=== PATIENT | male | born 1960 | race Caucasian/White ===

== ENCOUNTER → 2020-07-14 02:11 | Outpatient (CLI) | payer BC, SELFPAY ==
[2020-07-14 19:56] LABS: SARS-CoV-2 RNA PCR Negative
== END ==
PROVIDERS: PCP Family Medicine; Visit Provider Internal Medicine Gastroenterology
DX: Z01.812 Encounter for preprocedural laboratory examination (principal); Z20.822 Contact with and (suspected) exposure to COVID-19
CPT/HCPCS: C9803; U0003; U0005

== ENCOUNTER 2020-07-18 02:08 | Day surgery (SDC) | payer BC, SELFPAY ==
[2020-07-10 14:46] VITALS: BMI 21.5
[2020-07-18 08:51] VITALS: BP 126/74; PULSE 77; RESP 16; TEMP 36.4; O2SAT 98; BMI 19.4
[2020-07-18] MEDS: LACTATED RINGERS 1,000 ML 150 ML IV CONT (09:12)
--- NOTE | 2020-07-18 09:17 | WPDANESEPPF ---
Anes - Initial Pre Proc Eval Procedure: Operation Date: 07/18/20 09:30 Proposed Procedures p Esophagogastroduodenoscopy - Jenaro No MD Date/Time: 07/18/20 09:17 Surgeon: Jenaro No MD Pre Op Diagnosis: epigastric pain Patient Data Age: 59 Gender: M Height: 5 ft 11 in Weight: 63.2 kg Last Vital Signs Temp 97.6 F 07/18/20 08:51 Pulse 77 07/18/20 08:51 Resp 16 07/18/20 08:51 BP 126/74 07/18/20 08:51 Pulse Ox 98 07/18/20 08:51 Allergies Allergy/AdvReac Type Severity Reaction Status Date / Time No Known Allergies Allergy Verified 07/18/20 08:49 Home Medications Medication Instructions Recorded Confirmed Type baclofen 20 mg tablet 20 mg PO Q6H tablet 01/06/19 07/18/20 History oxybutynin chloride 10 mg 10 mg PO DAILY 01/06/19 07/18/20 History tablet,extended release 24 hr tramadol 50 mg tablet 50 mg PO Q6H PRN #28 tablet 02/03/19 07/18/20 Rx hydrocodone 5 mg-acetaminophen 325 1 tablet PO DAILY PRN #30 tablet 05/20/19 07/18/20 Rx mg tablet omeprazole 20 mg tablet,delayed 20 mg PO DAILY #30 tablet 06/18/20 07/18/20 Rx release diclofenac sodium 2 g TOPICAL QID PRN 07/10/20 07/18/20 History ibuprofen 400 mg PO Q6H PRN 07/18/20 07/18/20 History Patient hx anesthesia problems: none Family hx anesthesia problems: none [facility] Past Medical History Medical History (Updated 07/18/20 @ 09:13 by Velasquez Sanders MD) Quadriplegia, C5-C7 incomplete Family History Family History Father Family history of premature coronary heart disease, Onset Age: 70 Hypertension Family history of elevated blood lipids Patient's father is Family history of heart disease in male family member before age 55 Sibling Patient's sister is Other Family history of cardiovascular disease Social History Social History Smoking status: Never smoker Alcohol intake: never Substance use: never Substance use type: does not use Living arrangements: with family Spiritual care concerns: No Anes - Eval Final PreProcedure Day of Procedure 07/18/20 09:17 Patient weight: normal Heart: regular rate and rhythm Lungs: clear to auscultation Airway: Mallampati scale class II Neurological: alert and oriented Last oral intake: >/= 8 hours ASA classification: III Emergent: no Anesthetic plan: proceed Anesthesia type and monitoring: general GIVS and standard monitoring Informed Consent: The patient's anesthetic plan and its attendant risks and benefits were discussed with the patient/family/POA. Questions were solicited and answers provided to the satisfaction of the patient/family/POA.
--- NOTE | 2020-07-18 09:22 | WPDGICN ---
Assessment and Plan Assessment and plan (1) Epigastric abdominal pain: Code(s): R10.13 - Epigastric pain Status: Acute Assessment and Plan: Patient has ongoing epigastric pain. History of gastric ulcer 5 years ago. Plan is for EGD to assess more thoroughly. Patient does take a large amount of ibuprofen and this should be discontinued. Starr diet is encouraged dose of Prilosec will continue but amount will be reconsidered after endoscopy. (2) Quadriplegia, C5-C7 incomplete: Code(s): G82.54 - Quadriplegia, C5-C7 incomplete Status: Acute GI Consult Note Consult date/time: 07/18/20 09:22 HPI: Dustin Ramos is a 59 year old male Presents for EGD. Patient has distant history of gastric ulcer 2014. Has a history of spinal cord injury in 1996. He recently has required larger doses of ibuprofen. Because of epigastric pain he recently was started on Prilosec 20 mg p.o. daily. He states previously was on 40 mg p.o. daily with a better results. Because of ongoing epigastric pain an EGD is planned to assess for recurrent ulcer other causes of etiology possible biopsy. Review of Systems Review of Systems: All systems reviewed & are unremarkable except as noted in HPI and below PMFSH Past Medical History Medical History (Updated 07/18/20 @ 09:24 by Jenaro No MD) Quadriplegia, C5-C7 incomplete Family History Family History Father Family history of premature coronary heart disease, Onset Age: 70 Hypertension Family history of elevated blood lipids Patient's father is Family history of heart disease in male family member before age 55 Sibling Patient's sister is Other Family history of cardiovascular disease Social History Social History Smoking status: Never smoker Alcohol intake: never Substance use: never Substance use type: does not use Living arrangements: with family Spiritual care concerns: No Meds Home Medications and Allergies Home Medications Medication Instructions Recorded Confirmed Type baclofen 20 mg tablet 20 mg PO Q6H tablet 01/06/19 07/18/20 History oxybutynin chloride 10 mg 10 mg PO DAILY 01/06/19 07/18/20 History tablet,extended release 24 hr tramadol 50 mg tablet 50 mg PO Q6H PRN #28 tablet 02/03/19 07/18/20 Rx hydrocodone 5 mg-acetaminophen 325 1 tablet PO DAILY PRN #30 tablet 05/20/19 07/18/20 Rx mg tablet omeprazole 20 mg tablet,delayed 20 mg PO DAILY #30 tablet 06/18/20 07/18/20 Rx release diclofenac sodium 2 g TOPICAL QID PRN 07/10/20 07/18/20 History ibuprofen 400 mg PO Q6H PRN 07/18/20 07/18/20 History Allergies Allergy/AdvReac Type Severity Reaction Status Date / Time No Known Allergies Allergy Verified 07/18/20 08:49 Vital Signs Vital Signs - 24 hr 07/18/20 08:51 Temperature 97.6 F Pulse Rate 77 Respiratory Rate 16 Blood Pressure 126/74 Pulse Oximetry 98 Exam Narrative: Exam Narrative: Physical exam reveals patient be alert. Comfortable at rest. HEENT exam reveals him to be anicteric. He has significant weakness diffusely because of a cervical spine injury. Lungs are clear. Heart without murmur. Abdomen bowel sounds are present soft with mild epigastric discomfort tenderness. No organomegaly evident digital rectal exam deferred at this time.
[2020-07-18] MEDS: BENZOCAINE (*SP) 60 ML SPRAY CAN (HURRICAINE) 1 SPRAY MUCOUS MEM (09:40)
[2020-07-18 09:50] VITALS: BP 83/64; PULSE 69; RESP 29; O2SAT 98
[2020-07-18 10:00] VITALS: BP 97/70; PULSE 62; RESP 21; O2SAT 100
[2020-07-18 10:10] VITALS: BP 120/77; PULSE 62; RESP 20; O2SAT 100
== END 2020-07-18 10:30 | disposition home or self-care (01) ==
PROVIDERS: PCP Family Medicine; Visit Provider Internal Medicine Gastroenterology
PROC: 0DJ08ZZ Inspection of Upper Intestinal Tract, Via Natural or Artificial Opening Endoscopic (ICD-10-PCS; CPT 43235; principal; 2020-07-18 09:30)
DX: K25.3 Acute gastric ulcer without hemorrhage or perforation (principal); G82.54 Quadriplegia, C5-C7 incomplete; Z87.11 Personal history of peptic ulcer disease
CPT/HCPCS: 43239; 88305; 88342; J2704; J7120

== ENCOUNTER 2020-10-31 00:06 | Day surgery (SDC) | payer BC, SELFPAY ==
[2020-10-25 08:26] VITALS: BMI 19.3
--- NOTE | 2020-10-31 08:50 | WPDANESEPPF ---
Anes - Initial Pre Proc Eval Procedure: Operation Date: 10/31/20 09:00 Proposed Procedures p Esophagogastroduodenoscopy - Jenaro No MD Date/Time: 10/31/20 08:50 Surgeon: Jenaro No MD Pre Op Diagnosis: gastric ulcer Patient Data Age: 60 Gender: M Height: 1.8 m Weight: 63.1 kg Allergies Allergy/AdvReac Type Severity Reaction Status Date / Time No Known Allergies Allergy Verified 10/25/20 08:24 Home Medications Medication Instructions Recorded Confirmed Type tramadol 50 mg tablet 50 mg PO Q6H PRN #28 tablet 02/03/19 10/25/20 Rx hydrocodone 5 mg-acetaminophen 325 1 tablet PO DAILY PRN #30 tablet 05/20/19 10/25/20 Rx mg tablet diclofenac sodium 2 g TOPICAL QID PRN 07/10/20 09/03/20 History diclofenac sodium 1 % topical gel 2 g TOPICAL QID #300 g 08/24/20 10/25/20 Rx omeprazole 20 mg tablet,delayed 20 mg PO BID #180 tablet 08/24/20 10/25/20 Rx release oxybutynin chloride 10 mg 10 mg PO DAILY #90 tablet 08/24/20 10/25/20 Rx tablet,extended release 24 hr codeine 10 mg-guaifenesin 100 mg/5 10 ml PO Q6H PRN #180 ml 10/01/20 Rx mL oral liquid azithromycin 250 mg tablet See Rx Instructions PO .COMPLEX #6 10/02/20 Rx tablet valacyclovir 1 gram tablet 1,000 mg PO Q8H #30 tablet 10/02/20 Rx dexamethasone 6 mg tablet See Rx Instructions PO .COMPLEX 10/04/20 Rx #35 tablet albuterol sulfate 90 mcg/actuation 1 inh INHALATION Q4H PRN #6.7 g 10/22/20 Rx aerosol inhaler baclofen 20 mg PO QID 10/25/20 10/25/20 History Patient hx anesthesia problems: none Family hx anesthesia problems: none PMFSH Past Medical History Medical History Gastric ulcer OAB (overactive bladder) Paralytic gait Quadriplegia, C5-C7 incomplete Spastic neurogenic bladder Spondylosis, lumbar, with myelopathy Vitamin D deficiency, unspecified Surgical History Surgical History History of lumbar fusion History of lumbar laminectomy Family History Family History Father Family history of premature coronary heart disease, Onset Age: 70 Hypertension Family history of elevated blood lipids Patient's father is Family history of heart disease in male family member before age 55 Sibling Patient's sister is Other Family history of cardiovascular disease Social History Social History Social History: Smoking status: Never smoker Second hand tobacco smoke exposure: No Alcohol intake: never Substance use: never Substance use type: does not use Gender identity (if verbalized by the patient): Male Sexual Orientation (if Verbalized by the Patient): Straight or Heterosexual Spiritual care concerns: No Anes - Eval Final PreProcedure Day of Procedure 10/31/20 08:50 Patient weight: normal Heart: regular rate and rhythm Lungs: clear to auscultation Airway: Mallampati scale class II Neurological: alert and oriented Last oral intake: >/= 8 hours ASA classification: III Emergent: no Anesthetic plan: proceed Anesthesia type and monitoring: general GIVS and standard monitoring Informed Consent: The patient's anesthetic plan and its attendant risks and benefits were discussed with the patient/family/POA. Questions were solicited and answers provided to the satisfaction of the patient/family/POA.
[2020-10-31 08:55] VITALS: BP 120/74; PULSE 58; RESP 18; TEMP 36.6; O2SAT 98; BMI 19.0
[2020-10-31] MEDS: LACTATED RINGERS 1,000 ML 150 ML IV CONT (08:57)
--- NOTE | 2020-10-31 08:58 | WPDGICN ---
Assessment and Plan Assessment and plan (1) Gastric ulcer: Code(s): K25.9 - Gastric ulcer, unspecified as acute or chronic, without hemorrhage or perforation Status: Acute Assessment and Plan: Patient presents for follow-up of gastric ulcer. Identified to have a penetrating gastric ulcer 3 months ago. He has been maintained on PPI therapy. He is avoiding nonsteroidal anti-inflammatory agents. Further recommendations will be given after endoscopy. (2) Quadriplegia, C5-C7 incomplete: Code(s): G82.54 - Quadriplegia, C5-C7 incomplete Status: Acute GI Consult Note Consult date/time: 10/31/20 08:58 HPI: Dustin Ramos is a 60 year old male with incomplete quadriplegia presents for follow-up EGD. Patient has a history of a penetrating gastric ulcer identified in June of 2020. Patient states he continues to have mild epigastric pain. This is present continuously somewhat improved with eating. Is much less than previous. He currently is avoiding nonsteroidal anti-inflammatory agents. He has maintained a bland diet. He presents today for follow-up examination. He has been maintained on omeprazole 20mg p.o. b.i.d.. Family history noncontributory. Review of Systems Review of Systems: All systems reviewed & are unremarkable except as noted in HPI and below PMFSH Past Medical History Medical History Gastric ulcer OAB (overactive bladder) Paralytic gait Quadriplegia, C5-C7 incomplete Spastic neurogenic bladder Spondylosis, lumbar, with myelopathy Vitamin D deficiency, unspecified Surgical History Surgical History History of lumbar fusion History of lumbar laminectomy Family History Family History Father Family history of premature coronary heart disease, Onset Age: 70 Hypertension Family history of elevated blood lipids Patient's father is Family history of heart disease in male family member before age 55 Sibling Patient's sister is Other Family history of cardiovascular disease Social History Social History Social History: Smoking status: Never smoker Second hand tobacco smoke exposure: No Alcohol intake: never Substance use: never Substance use type: does not use Gender identity (if verbalized by the patient): Male Sexual Orientation (if Verbalized by the Patient): Straight or Heterosexual Spiritual care concerns: No Meds Home Medications and Allergies Home Medications Medication Instructions Recorded Confirmed Type tramadol 50 mg tablet 50 mg PO Q6H PRN #28 tablet 02/03/19 10/25/20 Rx hydrocodone 5 mg-acetaminophen 325 1 tablet PO DAILY PRN #30 tablet 05/20/19 10/25/20 Rx mg tablet diclofenac sodium 2 g TOPICAL QID PRN 07/10/20 09/03/20 History diclofenac sodium 1 % topical gel 2 g TOPICAL QID #300 g 08/24/20 10/25/20 Rx omeprazole 20 mg tablet,delayed 20 mg PO BID #180 tablet 08/24/20 10/25/20 Rx release oxybutynin chloride 10 mg 10 mg PO DAILY #90 tablet 08/24/20 10/25/20 Rx tablet,extended release 24 hr codeine 10 mg-guaifenesin 100 mg/5 10 ml PO Q6H PRN #180 ml 10/01/20 Rx mL oral liquid azithromycin 250 mg tablet See Rx Instructions PO .COMPLEX #6 10/02/20 Rx tablet valacyclovir 1 gram tablet 1,000 mg PO Q8H #30 tablet 10/02/20 Rx dexamethasone 6 mg tablet See Rx Instructions PO .COMPLEX 10/04/20 Rx #35 tablet albuterol sulfate 90 mcg/actuation 1 inh INHALATION Q4H PRN #6.7 g 10/22/20 10/31/20 Rx aerosol inhaler baclofen 20 mg PO QID 10/25/20 10/25/20 History Allergies Allergy/AdvReac Type Severity Reaction Status Date / Time No Known Allergies Allergy Verified 10/31/20 08:54 Vital Signs Vital Signs - 24 hr 10/31/20 08:55 Temperature 97.8 F
[2020-10-31 09:06] VITALS: BP 119/73; PULSE 64; RESP 18; O2SAT 99
[2020-10-31 09:46] VITALS: BP 92/58; PULSE 58; RESP 16; O2SAT 98
[2020-10-31 09:56] VITALS: BP 88/56; PULSE 58; RESP 18; O2SAT 98
== END 2020-10-31 10:33 | disposition home or self-care (01) ==
PROVIDERS: PCP Family Medicine; Visit Provider Internal Medicine Gastroenterology
PROC: 0DJ08ZZ Inspection of Upper Intestinal Tract, Via Natural or Artificial Opening Endoscopic (ICD-10-PCS; CPT 43235; principal; 2020-10-31 09:00)
DX: Z09 Encounter for follow-up examination after completed treatment for conditions other than malignant neoplasm (principal); R10.13 Epigastric pain; Z87.11 Personal history of peptic ulcer disease; G82.54 Quadriplegia, C5-C7 incomplete; N31.9 Neuromuscular dysfunction of bladder, unspecified; E55.9 Vitamin D deficiency, unspecified; M47.16 Other spondylosis with myelopathy, lumbar region; Z95.1 Presence of aortocoronary bypass graft; Z79.891 Long term (current) use of opiate analgesic; Z79.51 Long term (current) use of inhaled steroids
CPT/HCPCS: 43239; 87081; J2704; J7120

== ENCOUNTER 2021-07-19 15:17 | Outpatient (CLI) | payer BC, SELFPAY ==
[2021-07-19 16:48] LABS: Basophils Percent Auto 0.5 % (0.2-1.2); Eosinophils Absolute Auto 0.1 K/mm3 (0-0.3); Eosinophils Percent Auto 1.4 % (0-4.4); Hematocrit 44.1 % (42.0-52.0); Hemoglobin 14.3 g/dL (14.0-18.0); Immature Granulocyte Absolute 0.01 K/mm3 (0.00-0.031); Immature Granulocyte Percent A 0.2 % (0-0.5); Lymphocytes Absolute Auto 1.08 K/mm3 (0.9-3.2); Mean Corpuscular HGB Conc 32.4 g/dl (32-36); Mean Corpuscular Hemoglobin 29.1 pg (26-34); Mean Corpuscular Volume 89.8 fl (80-100); Mean Platelet Volume 11.3 fl (7.4-10.4); Monocytes Absolute Auto 0.4 K/mm3 (0.1-0.6); Monocytes Percent Auto 7.7 % (2.6-8.5); Neutrophils Absolute Auto 4.1 K/mm3 (1.3-6.7); Neutrophils Percent Auto 71.2 % (45.5-73.1); Platelet Count Result 247 k/mm3 (150-375); Red Blood Count 4.91 M/mm3 (4.6-6.20); White Blood Count 5.7 K/mm3 (4.5-10.0)
[2021-07-19 17:17] LABS: Erythrocyte Sedimentation Rate 1 mm/hr (0-20)
[2021-07-19 17:29] LABS: Alanine Aminotransferase 17 U/L (6-50); Albumin Level 4.8 g/dL (3.5-5.1); Alkaline Phosphatase 65 U/L (38-126); Anion Gap 7 mmol/L (8-16); Aspartate Amino Transferase 27 U/L (17-59); Bilirubin,Total 0.7 mg/dL (0.2-1.3); Blood Urea Nitrogen 12 mg/dL (9-20); Calcium 9.3 mg/dL (8.4-10.2); Carbon Dioxide 27 mmol/L (22-30); Chloride 101 mmol/L (98-107); Cholesterol 254 mg/dL (0-200); Estimated Glomerular Filt Rate > 60; Glucose 88 mg/dL (65-110); HDL Direct 73 mg/dL; Potassium 4.5 mmol/L (3.4-5.0); Sodium 135 mmol/L (137-145); Triglycerides 79 mg/dL (<150)
[2021-07-19 17:40] LABS: LDL Cholesterol Direct 130 mg/dL
[2021-07-19 18:38] LABS: Folic Acid 17.3 ng/mL (2.76->20); Vitamin B12 > 1000.0 pg/mL (239-931)
[2021-07-22 17:24] LABS: PSA, Free 0.59 ng/mL; PSA, Total 1.8 ng/mL (<=4.0)
[2021-07-23 14:34] LABS: Vitamin D 1,25 (OH)2 Total 45 pg/mL (18-72); Vitamin D2 1,25 (OH)2 <8 pg/mL; Vitamin D3 1,25 (OH)2 45 pg/mL
== END 2021-07-19 15:18 | disposition home or self-care (01) ==
LOC: ANHLAB 15:19
PROVIDERS: PCP Family Medicine; Visit Provider Family Medicine
DX: Z12.5 Encounter for screening for malignant neoplasm of prostate (principal); G82.54 Quadriplegia, C5-C7 incomplete; E78.2 Mixed hyperlipidemia; R26.1 Paralytic gait; M47.16 Other spondylosis with myelopathy, lumbar region; D61.818 Other pancytopenia; N40.1 Benign prostatic hyperplasia with lower urinary tract symptoms
CPT/HCPCS: 36415; 80053; 80061; 82607; 82652; 82746; 84153; 84154; 85025; 85652

== ENCOUNTER → 2021-08-28 11:55 | Outpatient (CLI) | payer BC, SELFPAY ==
--- NOTE | ~2021-08-28 | CT_ITS ---
EXAMINATION: CT diagnostic chest wo con DATE: 08/28/2021 12:09 INDICATION: Hemoptysis TECHNIQUE: Computed tomography (CT) of the chest was performed without intravenous contrast. The dose -length product (DLP) was 170.52 mGy-cm. Automated exposure control and iterative reconstruction tech [employer] were employed. COMPARISON: 05/15/2018 FINDINGS: There is a 2.8 x 1.9 cm spiculated nodule of the right upper lobe abutting the minor fissur e. No pleural effusion or pneumothorax. There is mild atelectasis of the right lower lobe. No patholo gically enlarged thoracic lymph nodes are identified. The heart size is normal. There is mild bilater al gynecomastia. There are partially imaged changes of anterior fusion in the lower cervical spine. T here is moderate thoracic spondylosis. IMPRESSION: 1. Right upper lobe nodule suspicious for primary bronchogenic carcinoma. CT-guided biopsy is recomme nded. Reviewed, dictated and finalized at location B. IMPRESSION: 1. Right upper lobe nodule suspicious for primary bronchogenic carcinoma. CT-gu ided biopsy is recommended.
== END ==
PROVIDERS: PCP Family Medicine; Visit Provider Family Medicine
DX: R04.2 Hemoptysis (principal); Z86.16 Personal history of COVID-19
CPT/HCPCS: 71250

== ENCOUNTER 2021-09-12 10:13 | Outpatient (CLI) | payer BC, SELFPAY ==
[2021-09-03 14:21] VITALS: BMI 19.6
--- NOTE | 2021-09-03 14:21 | PC.NURSE ---
Addendum entered by Brionna Allan RN 09/10/21 11:15: PT TO ARRIVE AT 1000 ON 09/12/21 FOR PROCEDURE AT 1200. Original Note: Pre Radiology instructions Report to the Outpatient Waiting Room, entrance under the green pavilion located off [facility], at time 0900 on date 09/10/21. Procedure Time: 1100. One visitor will be allowed to accompany the patient into the hospital. The visitor will be instructed to remain with patient at all times or leave the building. We will allow the visitor to come back to the postoperative area when patient is ready. You and your visitor will be asked a series of questions to screen for COVID 19 for your protection. A mask is required within the hospital. Patients are to have no food or drink 6 hours prior to procedure time Driving will be restricted after the procedure, you must have a person to drive you home. Labs will be drawn in preop area and once reviewed, you will be taken to radiology area for procedure. When the procedure is completed, you will be taken to outpatient where you will be monitored for several hours. You may have one visitor in this area. Other than holding anti-coagulants, patient may take other medication(s) as scheduled. Prior to your appointment date patients are instructed to hold anti-coagulants after discussing with ordering provider to stop. If unable to discontinue anti-coagulants please notify radiologist. No aspirin or warfarin (Coumadin) for 7 days prior to the procedure. No clopidogrel (Plavix), ticagrelor (Brilinta), prasugrel (Effient) or dabigatran (Pradaxa) for 5 days prior to the procedure. No rivaroxaban (Xarelto), apixaban (Eliquis), dipyridamole (Aggrenox or Persantine) or cilostazol (Pletal) for 2 days prior to the procedure. Medications to discontinue per physician: N/A Date to take last dose: N/A Please leave all valuables, including medications, at home the day of procedure. The hospital will not accept responsibility for valuables. Wear comfortable, loose fitting clothing. Follow any additional instructions given to you from ordering provider. Telephone instructions given to PT - ARNIE MORRISON and asked if any additional questions and then verbalized understanding. Patient advised to call scheduling provider office or registration scheduling [phone] if any additional questions.
[2021-09-12] VITALS (10 sets, daily range): BP systolic 98–115; BP diastolic 56–83; PULSE 56–77; RESP 14–16; TEMP 36.7; O2SAT 98–100
--- NOTE | ~2021-09-12 | XR_ITS ---
EXAMINATION: XR chest 1V DATE: 09/12/2021 13:23 INDICATION: Right lung nodule status post percutaneous biopsy. TECHNIQUE: A single frontal view of the chest was obtained. COMPARISON: Chest CT 08/28/2021 FINDINGS: There is a nodule in right upper lobe. There is a small right pneumothorax. No pleural effu jeanne. The heart size is normal. There are changes of anterior fusion procedure in cervical spine. IMPRESSION: 1. Nodule in right lung upper lobe suspicious for primary bronchogenic carcinoma. 2. Small right pneumothorax. Reviewed, dictated and finalized at location A. IMPRESSION: 1. Nodule in right lung upper lobe suspicious for primary bronchogenic carcinom a. 2. Small right pneumothorax.
--- NOTE | ~2021-09-12 | CT_ITS ---
EXAMINATION: CT biopsy lung w/imaging DATE: 09/12/2021 13:35 INDICATION: Right upper lobe nodule TECHNIQUE: The procedure including the risks and benefits was discussed with the patient. Risks discu ssed included infection, approximately 1/20 risk of symptomatic hemorrhage beyond mild hemoptysis, ap proximately 1/3 risk of pneumothorax, and approximately 1/10 risk of pneumothorax severe enough to wa rrant chest tube placement. The patient understood the risks and agreed to proceed. The patient was p laced in a TYRELL prone position. The skin overlying the lateral mid right chest was prepped and draped in sterile fashion. Anesthetic was administered with 1% lidocaine subcutaneously. A 19 gauge outer needle was advanced under CT guidance to the lesion of interest. A 20 gauge core biopsy needle was t hen used to obtain 5 core biopsy specimens. The needle was removed and the entry site was cleaned and dressed. There were no immediate complications. The dose-length product was 310.71 mGy-cm. FINDINGS: CT images demonstrate the outer needle tip adjacent to just within the 2.8 x 1.9 cm spicula yahir nodule in the right upper lobe which abuts the minor fissure. IMPRESSION: 1. Successful CT-guided biopsy of a 2.8 x 1.9 cm spiculated right upper lobe nodule. Reviewed, dictated and finalized at location A. IMPRESSION: 1. Successful CT-guided biopsy of a 2.8 x 1.9 cm spiculated right upper lobe no dule.
--- NOTE | ~2021-09-12 | XR_ITS ---
EXAMINATION: XR chest 1V portable DATE: 09/12/2021 14:22 INDICATION: Right lung nodule status post percutaneous biopsy. TECHNIQUE: A single frontal view of the chest was obtained on 2 radiographs. COMPARISON: Chest single view at 1:21 PM FINDINGS: There is a small right pneumothorax. There is a nodule in right upper lobe. No pleural effu jeanne. The heart size is normal. There are changes of anterior fusion procedure in cervical spine. IMPRESSION: 1. Nodule in right lung upper lobe suspicious for primary bronchogenic carcinoma. 2. Stable small right pneumothorax. Reviewed, dictated and finalized at location A. IMPRESSION: 1. Nodule in right lung upper lobe suspicious for primary bronchogenic carcinom a. 2. Stable small right pneumothorax.
--- NOTE | ~2021-09-12 | XR_ITS ---
EXAMINATION: XR chest 1V portable DATE: 09/12/2021 16:22 INDICATION: 3 hours post percutaneous right lung biopsy TECHNIQUE: frontal view of the chest was obtained. COMPARISON: Chest radiograph dated 09/12/2021 at 2:19 PM and 1:21 PM FINDINGS: No interval change in a small pneumothorax at the right apex. Right upper lobe nodule along the minor fissure. No pleural effusion or left-sided pneumothorax. The cardiomediastinal silhouette is normal. Impression visualized lower cervical anterior spinal fusion with screw fixation. IMPRESSION: 1. Right upper lobe nodule suspicious for primary bronchogenic carcinoma. 2. Unchanged small right pneumothorax. Reviewed, dictated and finalized at location A.
[2021-09-12 11:00] LABS: Mean Platelet Volume 10.1 fl (7.4-10.4); Platelet Count Result 222 k/mm3 (150-375)
[2021-09-12 11:08] LABS: Prothrombin Time 13.1 Seconds (11.1-14.7)
--- NOTE | 2021-09-12 14:57 | SUR.PHASEII ---
Patient self caths at home and is doing so now at the hospital.
== END 2021-09-12 17:08 | disposition home or self-care (01) ==
PROVIDERS: PCP Family Medicine; Visit Provider Radiology Diagnostic Radiology
PROC: BB24ZZZ Computerized Tomography (CT Scan) of Bilateral Lungs (ICD-10-PCS; CPT 32408; principal; 2021-09-12 12:00)
DX: R04.2 Hemoptysis (principal); R91.1 Solitary pulmonary nodule; Z86.16 Personal history of COVID-19
CPT/HCPCS: 32408; 36415; 71045; 85049; 85610; 88305; 88312; 88342

== ENCOUNTER 2023-09-11 00:46 | Day surgery (SDC) | payer BC, MEDICARE, SELFPAY ==
[2023-09-03 14:11] VITALS: BMI 18.8
--- NOTE | 2023-09-11 09:31 | PM.HPGS ---
History of Present Illness History of Present Illness Consent: Risks, benefits, and alternatives have been discussed and questions answered. Patient agrees to proceed with procedure. Chief complaint: Personal hx. of peptic ulcer disease,RUQtenderness Narrative: Dustin Ramos is a 63 year old male here for egd, had ulcer that healed but recently had a fall with injury in abdomen with persistent epigastric pain, he wonders if ulcer is back. He is using ppi Review of Systems Review of Systems: All systems reviewed & are unremarkable except as noted in HPI and below PMFSH Past Medical History Medical History Gastric ulcer OAB (overactive bladder) Paralytic gait Quadriplegia, C5-C7 incomplete Spastic neurogenic bladder Spondylosis, lumbar, with myelopathy Vitamin D deficiency, unspecified Surgical History Surgical History History of lumbar fusion History of lumbar laminectomy Family History Family History Father Family history of premature coronary heart disease, Onset Age: 70 Hypertension Family history of elevated blood lipids Patient's father is Family history of heart disease in male family member before age 55 Sibling Patient's sister is Other Family history of cardiovascular disease Social History Social History Social History: Smoking status: Never smoker Second hand tobacco smoke exposure: No Alcohol intake: never Substance use: never Substance use type: opiates and painkillers Do You Feel Safe in your Home?: Yes Lack of Transportation: No Lack of Food: Never True Current Housing: I Have Housing Concerned About Future Housing: No Difficulty Paying Gas/Electric Bills: No Difficulty Paying for Meds: No Currently Unemployed: YES Education: Don't Know Difficulty w/ Childcare or Family Care: No Living arrangements: with family Occupation/Education: retired Gender identity (if verbalized by the patient): Male Sexual Orientation (if Verbalized by the Patient): Straight or Heterosexual Spiritual care concerns: No Meds Home Medications and Allergies Home Medications Medication Instructions Recorded Confirmed Type tramadol 50 mg tablet 50 mg PO Q6H PRN pain #28 tabs 02/03/19 09/09/23 Rx hydrocodone 5 mg-acetaminophen 325 1 tablet PO DAILY PRN pain #30 tabs 05/20/19 09/09/23 Rx mg tablet baclofen 20 mg tablet 20 mg PO QID 07/17/23 09/09/23 History oxybutynin chloride 10 mg 15 mg PO DAILY 07/22/23 09/09/23 History tablet,extended release 24 hr omeprazole 40 mg capsule,delayed See Rx Instructions .Route 09/10/23 Rx release .COMPLEX #180 caps Allergies Allergy/AdvReac Type Severity Reaction Status Date / Time No Known Allergies Allergy Verified 09/09/23 13:08 Exam Const: General: comfortable and no acute distress HENMT: Face/Nose/Sinus: Normal nares present Eyes: General: appearance normal, both eyes and all related structures Neck: Neck: no JVD Resp: Auscultation: clear to auscultation bilaterally Cardio: Rate: regular rate Rhythm: regular rhythm GI: Inspection: non-distended GI Palp: Yes Soft to palpation Skin: General skin exam: normal color Neuro: General: gait normal Speech: normal speech Extrem: General: normal to inspection Psych: Mental Status: mental status grossly normal Assessment and Plan Assessment and plan (1) History of gastric ulcer: Code(s): Z87.11 - Personal history of peptic ulcer disease Status: Acute Assessment and Plan: egd with bx (2) Epigastric abdominal pain: Code(s): R10.13 - Epigastric pain Status: Acute
[2023-09-11 09:43] VITALS: BP 115/73; PULSE 66; RESP 19; TEMP 36.6; O2SAT 98
[2023-09-11] MEDS: LACTATED RINGERS 1,000 ML 150 ML IV CONT (09:45)
--- NOTE | 2023-09-11 10:14 | WPDANESEPPF ---
Anes - Initial Pre Proc Eval Procedure: Operation Date: 09/11/23 10:30 Proposed Procedures p Esophagogastroduodenoscopy - Kiet Chase MD Date/Time: 09/11/23 10:14 Surgeon: Kiet Chase MD Pre Op Diagnosis: Personal hx. of peptic ulcer disease,RUQtenderness Patient Data Age: 63 Gender: M Height: 1.8 m Weight: 63.1 kg Last Vital Signs Temp 98 F 09/11/23 09:43 Pulse 66 09/11/23 09:43 Resp 19 09/11/23 09:43 BP 115/73 09/11/23 09:43 Pulse Ox 98 09/11/23 09:43 O2 Del Method Room Air 09/11/23 09:43 Allergies Allergy/AdvReac Type Severity Reaction Status Date / Time No Known Allergies Allergy Verified 09/11/23 09:42 Home Medications Medication Instructions Recorded Confirmed Type tramadol 50 mg tablet 50 mg PO Q6H PRN pain #28 tabs 02/03/19 09/09/23 Rx hydrocodone 5 mg-acetaminophen 325 1 tablet PO DAILY PRN pain #30 tabs 05/20/19 09/11/23 Rx mg tablet baclofen 20 mg tablet 20 mg PO QID 07/17/23 09/09/23 History oxybutynin chloride 10 mg 15 mg PO DAILY 07/22/23 09/11/23 History tablet,extended release 24 hr omeprazole 40 mg capsule,delayed See Rx Instructions .Route 09/10/23 09/11/23 Rx release .COMPLEX #180 caps Patient hx anesthesia problems: none Family hx anesthesia problems: none Results Review: All pre-operative results and documents have been reviewed as part of the pre-operative evaluation. [facility] Past Medical History Medical History Gastric ulcer OAB (overactive bladder) Paralytic gait Quadriplegia, C5-C7 incomplete Spastic neurogenic bladder Spondylosis, lumbar, with myelopathy Vitamin D deficiency, unspecified Surgical History Surgical History History of lumbar fusion History of lumbar laminectomy Family History Family History Father Family history of premature coronary heart disease, Onset Age: 70 Hypertension Family history of elevated blood lipids Patient's father is Family history of heart disease in male family member before age 55 Sibling Patient's sister is Other Family history of cardiovascular disease Social History Social History Social History: Smoking status: Never smoker Second hand tobacco smoke exposure: No Alcohol intake: never Substance use: never Substance use type: opiates and painkillers Do You Feel Safe in your Home?: Yes Lack of Transportation: No Lack of Food: Never True Current Housing: I Have Housing Concerned About Future Housing: No Difficulty Paying Gas/Electric Bills: No Difficulty Paying for Meds: No Currently Unemployed: YES Education: Don't Know Difficulty w/ Childcare or Family Care: No Living arrangements: with family Occupation/Education: retired Gender identity (if verbalized by the patient): Male Sexual Orientation (if Verbalized by the Patient): Straight or Heterosexual Spiritual care concerns: No Anes - Eval Final PreProcedure Day of Procedure 09/11/23 10:14 Patient weight: normal Heart: regular rate and rhythm Lungs: clear to auscultation Airway: Mallampati scale class II Neurological: alert and oriented Last oral intake: >/= 8 hours ASA classification: III Emergent: no Anesthetic plan: proceed Anesthesia type and monitoring: general GIVS and standard monitoring Results Review: All pre-operative results and documents have been reviewed as part of the pre-operative evaluation. 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 Hx of PUD. Informed Consent: The patient's anesthetic plan and its attendant risks and benefits were discussed with the patient/family/POA. Questions were solicited and answers provided to the
[2023-09-11 11:14] VITALS: BP 100/53; PULSE 55; RESP 15; O2SAT 98
[2023-09-11 11:24] VITALS: BP 120/76; PULSE 53; RESP 15; O2SAT 100
[2023-09-11 11:30] VITALS: BP 130/79; PULSE 57; RESP 20; O2SAT 99
== END 2023-09-11 11:51 | disposition home or self-care (01) ==
PROVIDERS: PCP Family Medicine; Visit Provider Internal Medicine Gastroenterology
PROC: 0DJ08ZZ Inspection of Upper Intestinal Tract, Via Natural or Artificial Opening Endoscopic (ICD-10-PCS; CPT 43235; principal; 2023-09-11 10:30)
DX: R10.811 Right upper quadrant abdominal tenderness (principal); Z87.11 Personal history of peptic ulcer disease; R10.13 Epigastric pain; E55.9 Vitamin D deficiency, unspecified; G82.50 Quadriplegia, unspecified
CPT/HCPCS: 43239; 88305; J7120

== ENCOUNTER 2023-09-28 14:24 | Outpatient (CLI) | payer BC, SELFPAY ==
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
[2023-09-28 15:02] LABS: Estimated Glomerular Filt Rate > 60
== END 2023-09-28 14:25 | disposition home or self-care (01) ==
LOC: ANHIMG 14:36
PROVIDERS: PCP Family Medicine; Visit Provider Student in an Organized Health Care Education/Training Program
DX: R10.13 Epigastric pain (principal); K59.00 Constipation, unspecified; K76.0 Fatty (change of) liver, not elsewhere classified
CPT/HCPCS: 74177; Q9967